=== PATIENT | female | born 2000 | race Two or more races ===

== ENCOUNTER 2020-04-21 17:21 | Emergency (ER) | payer SELFPAY ==
--- NOTE | 2020-04-21 17:39 | ER Document Report ---
ED Medical Screen (RME) - General Chief Complaint: Vaginal Bleeding Stated Complaint: VAGINAL BLEEDING Time Seen by Provider: 04/21/20 17:32 Mode of Arrival: Wheelchair Information source: Patient Notes: Patient reports being about 4 to 5 weeks . Patient taking a positive home test. Patient reports vaginal bleeding and pelvic cramping today. Patient does report some dysuria and low back pain as well. I have greeted and performed a rapid initial assessment of this patient. A comprehensive ED assessment and evaluation of the patient, analysis of test results and completion of the medical decision making process will be conducted by additional ED providers. Physical Exam - Vital signs Vitals: Temp Pulse Resp BP Pulse Ox 98.4 F 81 18 131/78 H 100 04/21/20 17:33 04/21/20 17:33 04/21/20 17:33 04/21/20 17:33 04/21/20 17:33 - Abdominal Tenderness: Tender - Lower pelvic tenderness Course - Vital Signs Vital signs: Temp Pulse Resp BP Pulse Ox 98.4 F 81 18 131/78 H 100 04/21/20 17:33 04/21/20 17:33 04/21/20 17:33 04/21/20 17:33 04/21/20 17:33
[2020-04-21 18:15] LABS: ABSOLUTE LYMPHOCYTES (AUTO) 1.9 10^3/uL (0.5-4.7); ABSOLUTE MONOCYTES (AUTO) 0.7 10^3/uL (0.1-1.4); ABSOLUTE NEUT (AUTO) 7.3 10^3/uL (1.7-8.2); BASOPHILS % (AUTO) 0.1 % (0-2); EOSINOPHILS % (AUTO) 0.4 % (0-6); HEMATOCRIT 37.4 % (36.0-47.0); HEMOGLOBIN 13.3 g/dL (12.0-15.5); LYMPHOCYTES % (AUTO) 18.8 % (13-45); MEAN CORPUSCULAR HEMOGLOBIN 33.2 pg (27.0-33.4); MEAN CORPUSCULAR HGB CONC 35.6 g/dL (32.0-36.0); MEAN CORPUSCULAR VOLUME 93 fl (80-97); MONOCYTES % (AUTO) 7.3 % (3-13); PLATELET COUNT 269 10^3/uL (150-450); RED BLOOD COUNT 4.01 10^6/uL (3.72-5.28); RED CELL DISTRIBUTION WIDTH 12.1 % (11.5-14.0); SEGMENTED NEUTROPHILS % (AUTO) 73.4 % (42-78); TOTAL CELLS COUNTED % (AUTO) 100 %; WHITE BLOOD COUNT 9.9 10^3/uL (4.0-10.5)
[2020-04-21 18:38] LABS: APPEARANCE,URINE CLEAR; BILIRUBIN,URINE NEGATIVE (NEGATIVE); COLOR,URINE STRAW; GLUCOSE, URINE NEGATIVE (NEGATIVE); KETONES,URINE 80 mg/dL (NEGATIVE); LEUKOCYTE ESTERASE,URINE NEGATIVE (NEGATIVE); NITRITE,URINE NEGATIVE (NEGATIVE); PROTEIN,URINE NEGATIVE (NEGATIVE); URINE SPECIFIC GRAVITY 1.006; UROBILINOGEN,URINE NEGATIVE mg/dL (<2.0)
--- NOTE | 2020-04-21 18:40 | RADIOLOGY REPORT (SQ) ---
EXAM DESCRIPTION: U/S OB TRANSVAGINAL W/O DOP IMAGES COMPLETED DATE/TIME: 04/21/2020 6:30 pm REASON FOR STUDY: vag bleeding, pelvic cramping COMPARISON: None. TECHNIQUE: Transvaginal static and realtime grayscale images acquired of the pelvis. Additional kenton cted spectral and color Doppler images recorded. All images stored on PACs. bHCG: Pending. CLINICAL DATES: LMP 02/23/2020 8 weeks 2 days LIMITATIONS: None. FINDINGS: FETUS: Single Living intrauterine . ULTRASOUND EGA: 5 weeks 5 days ULTRASOUND MAY: 12/17/2020 EFW: Not applicable less than 20 weeks. CRL: 0.21 cm FHR: 95 beats per minute. SURVEY: Too early to assess. AMNIOTIC FLUID: Adequate amount. PLACENTA: Not yet developed due to early gestation. SUBCHORIONIC BLEED: Yes SIZE OF BLEED: 12 x 9 x 2 mm. UTERUS: No masses. No anomalies. CERVICAL LENGTH: 1.8 cm. Closed. RIGHT ADNEXA: Normal ovary measures 2.1 x 2.4 x 2.7 cm. No adnexal free fluid. No adnexal masses. LEFT ADNEXA: Normal ovary measures 3.6 x 2.5 x 2 cm. 2.2 cm corpus luteum. No adnexal free fluid. No adnexal masses. FREE FLUID: None. OTHER: No other significant finding. IMPRESSION: LIVING INTRAUTERINE . EGA 5 weeks 5 days. Trimester of : First trimester - 0 to 13 weeks. TECHNICAL DOCUMENTATION: JOB ID: [id number] 2010 [employer]- All Rights Reserved rev Reading location - IP/workstation name: [email or web address]
--- NOTE | 2020-04-21 20:09 | ER Document Report ---
ED General - General Chief Complaint: Vaginal Bleeding Stated Complaint: VAGINAL BLEEDING Time Seen by Provider: 04/21/20 17:32 Primary Care Provider: JOHNNIE CARR MD [ACTIVE STAFF] - Follow up as needed Mode of Arrival: Wheelchair - HPI Notes: 19-year-old female here for vaginal bleeding and pelvic cramping. Patient states that yesterday she took a test and it was positive. She also had some vaginal bleeding. She described as a dark red. States she has been wearing "not that many" pads. She denies vaginal discharge. She denies concern for STD. She states her LMP was February 22, making her approximately 4 to 5 weeks gestation. She is having some nausea. No vomiting or diarrhea. She has had no previous pelvic exams before. - Related Data Allergies/Adverse Reactions: No Known Allergies Allergy (Unverified 04/21/20 17:39) Past Medical History - General Information source: Patient - Social History Smoking Status: Never Smoker Chew tobacco use (# tins/day): No Frequency of alcohol use: None Drug Abuse: None Family History: Reviewed & Not Pertinent Patient has homicidal ideation: No Review of Systems - Review of Systems Constitutional: denies: Fever EENT: No symptoms reported Cardiovascular: No symptoms reported Respiratory: No symptoms reported Gastrointestinal: Nausea Genitourinary: Dysuria Female Genitourinary: Musculoskeletal: No symptoms reported Skin: No symptoms reported Neurological/Psychological: No symptoms reported Physical Exam - Vital signs Vitals: Temp Pulse Resp BP Pulse Ox 98.4 F 81 18 131/78 H 100 04/21/20 17:33 04/21/20 17:33 04/21/20 17:33 04/21/20 17:33 04/21/20 17:33 - General General appearance: Appears well, Alert In distress: None - HEENT Head: Normocephalic Extraocular movements intact: Yes Pupils: PERRL - Respiratory Breath sounds: Normal - Cardiovascular Rhythm: Regular Heart sounds: Normal auscultation - Abdominal Distension: No distension Tenderness: Nontender - Genitourinary Notes: Pelvic exam performed with optical engineering technician compensation specialist. Normal appearing external genitalia, no lesions. On speculum exam there is a brown cervical mucus, cervix closed. No hemorrhage. No cervical motion tenderness. No adnexal tenderness. - Extremities General upper extremity: Normal ROM General lower extremity: Normal ROM - Neurological Neuro grossly intact: Yes Orientation: AAOx4 - Psychological Associated symptoms: Normal affect - Skin Skin Temperature: Warm Course - Re-evaluation Re-evalutation: 19-year-old female estimated 4-5 weeks gestation based on LMP here for pelvic cramping, vaginal bleeding with a home test that was positive. On exam she is well-appearing, vitals are stable, abdomen/pelvis has no external tenderness. Through the triage process patient had labs done which was unre markable, she is Rh+. She had an ultrasound done which shows a live IUP estimated 5 weeks gestation, ultrasound read as cervix closed. A pelvic exam was performed which did show a closed cervix as well, no tenderness, she had a brown cervical discharge. I discussed with her potentially this represents an implantation bleed. There is currently no active hemorrhage. Given that the cervix is closed on exam and ultrasound, have a lower suspicion for spontaneous or threatened at this time. Her urine does not suggest UTI. 04/21/20 21:43 Pelvic swabs with 4+ bacteria and epithelial cells, will consider this signs of BV given the discharge that she had. Discussed with patient treatment options Flagyl oral versus intravaginal, she would like oral. I discussed with her need to start vitamins, can only use Tylenol for pain, need to follow-up with CLERK ANALYST or health department. She verbalized understanding peer return precautions given, he stable time of discharge. - Vital Signs Vital signs: Temp Pulse Resp BP Pulse Ox 98.4 F 87 18 126/70 H 100 04/21/20 21:28 04/21/20 21:28 04/21/20 21:28 04/21/20 21:28 04/21/20 21:28 - Laboratory Result Diagrams: 04/21/20 17:53 Laboratory results interpreted by me: 04/21/20 04/21/20 17:53 17:53 Beta HCG, Quant 34110.00 H Urine Ketones 80 H Urine Blood SMALL H - Diagnostic Test Radiology reviewed: Image reviewed, Reports reviewed Discharge - Discharge Clinical Impression: First trimester , Bacterial vaginosis Condition: Stable Disposition: HOME, SELF-CARE Additional Instructions: Please establish care with CLERK ANALYST. I have provided contact information for the CLERK ANALYST that was brazer induction today, you may establish with a practice of your choice, you may look into using the health department as well. Please start vitamins. Start course of Flagyl for bacterial vaginosis. You may take Tylenol for any pain, can no longer use NSAIDs, which is ibuprofen/Motrin ect. Return to the emergency department for any concerning worsening symptoms. Prescriptions: Metronidazole [Flagyl 500 mg Tablet] 500 mg PO BID 7 Days #14 tablet Vitamin [-U Multiple Vitamin Capsule] 1 cap PO DAILY #30 capsule Referrals: JOHNNIE CARR MD [ACTIVE STAFF] - Follow up as needed
[2020-04-21 20:19] LABS: CHLAM PCR NOT DETECTED (NOT DETECT)
[2020-04-21 21:17] LABS: BACTERIA (WET MOUNT) 4+ BACTERIA SEEN; EPITHELIALS (WET MOUNT) 3+ EPITHELIALS SEEN; RBCS (WET MOUNT) NO RBCS SEEN; T.VAGINALIS (WET MOUNT) NO TRICHOMONAS SEEN; WBCS (WET MOUNT) 1+ WBCS SEEN; YEAST (WET MOUNT) NO YEAST SEEN
[2020-04-21 21:29] VITALS: BP 126/70
[2020-04-22 00:33] LABS: CHLAM PCR NOT DETECTED (NOT DETECT)
== END 2020-04-21 21:52 | disposition home or self-care (01) ==
LOC: ER 17:21
DX: O23.591 Infection of other part of genital tract in pregnancy, first trimester (principal); B96.89 Other specified bacterial agents as the cause of diseases classified elsewhere; O20.8 Other hemorrhage in early pregnancy; O26.891 Other specified pregnancy related conditions, first trimester; R10.2 Pelvic and perineal pain; R11.0 Nausea; R30.0 Dysuria; Z3A.01 Less than 8 weeks gestation of pregnancy
CPT/HCPCS: 36415; 76817; 81001; 84702; 85025; 86900; 86901; 87210; 87491; 87591; 99284

== ENCOUNTER 2020-04-24 17:37 | Emergency (ER) | payer SELFPAY ==
--- NOTE | 2020-04-24 18:01 | ER Document Report ---
ED Medical Screen (RME) - General Chief Complaint: Vag Bleeding, +preg <12wks Stated Complaint: VAGINAL BLEEDING Time Seen by Provider: 04/24/20 17:54 Mode of Arrival: Wheelchair Information source: Patient Notes: HPI; 19-year-old female who states she is approximately 5 weeks presents to be emergency room with a sudden onset of heavy bleeding and passing clots that started approximately 1 hour prior to arrival. Patient states she was seen here on when she was first diagnosed with her and was told the bleeding was implantation bleeding. She is a 1. Complaining of cramping with the bleeding. PE: Alert and oriented x3. Moderate distress noted. Lungs: Clear to auscultation without rales, rhonchi, wheezes. Heart: Regular rate rhythm without murmurs, rubs, gallops. I have greeted and performed a rapid initial assessment of this patient. A comprehensive ED assessment and evaluation of the patient, analysis of test results and completion of the medical decision making process will be conducted by additional ED providers. I have specifically instructed the patient or family members with the patient to immediately return to any nursing staff should anything change in the patient's condition or with their chief complaint. TRAVEL OUTSIDE OF THE [place] IN LAST 30 DAYS: No - Related Data Allergies/Adverse Reactions: No Known Allergies Allergy (Unverified 04/21/20 17:39) Physical Exam - Vital signs Vitals: Temp Pulse Resp BP Pulse Ox 98.6 F 84 16 127/71 H 99 04/24/20 17:53 04/24/20 17:53 04/24/20 17:53 04/24/20 17:53 04/24/20 17:53 Course - Vital Signs Vital signs: Temp Pulse Resp BP Pulse Ox 98.6 F 84 16 127/71 H 99 04/24/20 17:53 04/24/20 17:53 04/24/20 17:53 04/24/20 17:53 04/24/20 17:53
[2020-04-24 18:23] LABS: ABSOLUTE LYMPHOCYTES (AUTO) 1.9 10^3/uL (0.5-4.7); ABSOLUTE MONOCYTES (AUTO) 0.9 10^3/uL (0.1-1.4); BASOPHILS % (AUTO) 0.3 % (0-2); HEMOGLOBIN 13.5 g/dL (12.0-15.5); TOTAL CELLS COUNTED % (AUTO) 100 %
[2020-04-24 18:30] LABS: ABSOLUTE NEUT (AUTO) 8.7 10^3/uL (1.7-8.2); EOSINOPHILS % (AUTO) 0.3 % (0-6); LYMPHOCYTES % (AUTO) 16.4 % (13-45); MEAN CORPUSCULAR HEMOGLOBIN 33.1 pg (27.0-33.4); MEAN CORPUSCULAR HGB CONC 35.6 g/dL (32.0-36.0); MEAN CORPUSCULAR VOLUME 93 fl (80-97); PLATELET COUNT 277 10^3/uL (150-450); RED BLOOD COUNT 4.08 10^6/uL (3.72-5.28); WHITE BLOOD COUNT 11.6 10^3/uL (4.0-10.5)
[2020-04-24 18:42] LABS: ALBUMIN 4.2 g/dL (3.5-5.0); ALKALINE PHOSPHATASE 58 U/L (38-126); ANION GAP 10 (5-19); ASPARTATE AMINO TRANSFERASE 20 U/L (14-36); BILIRUBIN,DIRECT 0.2 mg/dL (0.0-0.4); BILIRUBIN,TOTAL 0.5 mg/dL (0.2-1.3); BLOOD UREA NITROGEN 6 mg/dL (7-20); CALCIUM 8.8 mg/dL (8.4-10.2); CARBON DIOXIDE 21 mmol/L (22-30); CHLORIDE 107 mmol/L (98-107); GLUCOSE 90 mg/dL (75-110); POTASSIUM 3.6 mmol/L (3.6-5.0); TOTAL PROTEIN 6.9 g/dL (6.3-8.2)
--- NOTE | 2020-04-24 19:01 | RADIOLOGY REPORT (SQ) ---
EXAM DESCRIPTION: U/S OB TRANSVAG W/DOPPLER IMAGES COMPLETED DATE/TIME: 04/24/2020 6:42 pm REASON FOR STUDY: bleeding COMPARISON: None. TECHNIQUE: Transvaginal static and realtime grayscale images acquired of the pelvis. Additional kenton cted spectral and color Doppler images recorded. All images stored on PACs. bHC,125 on 04/21/2020. Today's value is pending. CLINICAL DATES: 8 week 5 day LIMITATIONS: None. FINDINGS: FETUS: Single Living intrauterine . ULTRASOUND EGA: 6 week 3 day ULTRASOUND MAY: 12/15/2020 EFW: Not applicable less than 20 weeks. CRL: 0.6 cm YOLK SAC: Present, slightly irregular-shaped. FHR: 111 beats per minute. SURVEY: Too early to assess. AMNIOTIC FLUID: Adequate amount. PLACENTA: Not yet developed due to early gestation. SUBCHORIONIC BLEED: No. SIZE OF BLEED: Not applicable. UTERUS: No masses. No anomalies. CERVICAL LENGTH: 2.1 cm. Closed. RIGHT ADNEXA: Normal ovary with normal vascular flow. No adnexal free fluid. No adnexal masses. LEFT ADNEXA: Normal ovary with normal vascular flow. No adnexal free fluid. No adnexal masses. FREE FLUID: None. OTHER: No other significant finding. IMPRESSION: Early living IUP, slight further growth compared to study from 3 days ago. On today's s tudy, it measures 6 weeks 3 days. This is less than expected based on correlation with clinical dati ng (8 week 5 day). There is also a slightly irregular yolk sac. Close clinical followup and imaging surveillance recommended. Trimester of : First trimester - 0 to 13 weeks. TECHNICAL DOCUMENTATION: JOB ID: [id number] 2010 [employer]- All Rights Reserved rev-12/06 Reading location - IP/workstation name: [email or web address]
[2020-04-24] MEDS ORDERED: ONDANSETRON HCL INJ/PF 4 MG/2 ML SDV IV ONE (19:24)
--- NOTE | 2020-04-24 19:28 | ER Document Report ---
ED General - General Chief Complaint: abnormal vaginal bleeding Stated Complaint: VAGINAL BLEEDING Time Seen by Provider: 04/24/20 17:54 Mode of Arrival: Wheelchair TRAVEL OUTSIDE OF THE [place] IN LAST 30 DAYS: No - HPI Notes: This is a 19-year-old female, G1, P0, last menstrual period on February 22, who presents to the emergency department for evaluation of vaginal bleeding. She was actually seen here on April 21 for some spotting. She was diagnosed with bacterial vaginosis at that time, started on medication. The patient states that it at 4:00 today she started having increased cramping and heavier bleeding. She relates that it is slightly heavier than a menstrual period. She has some cramping that she rates as a 3 out of 5. No fevers or chills. She has had some nausea but no emesis. No dysuria, urine Fausto frequency. - Related Data Allergies/Adverse Reactions: No Known Allergies Allergy (Unverified 04/21/20 17:39) Home Medications: flagyl, vitamins Past Medical History - General Information source: Patient - Social History Smoking Status: Never Smoker Frequency of alcohol use: None Drug Abuse: None Family History: Reviewed & Not Pertinent - Medical History Medical History: Negative Past Surgical History: Reports: None Review of Systems - Review of Systems Constitutional: No symptoms reported EENT: No symptoms reported Cardiovascular: No symptoms reported Respiratory: No symptoms reported Gastrointestinal: See HPI Genitourinary: No symptoms reported Female Genitourinary: See HPI Musculoskeletal: No symptoms reported Skin: No symptoms reported Neurological/Psychological: No symptoms reported Physical Exam - Vital signs Vitals: Temp Pulse Resp BP Pulse Ox 98.6 F 84 16 127/71 H 99 04/24/20 17:53 04/24/20 17:53 04/24/20 17:53 04/24/20 17:53 04/24/20 17:53 - Notes Notes: Vital signs reviewed, please refer to chart. Head is normocephalic, atraumatic. Pupils equal round, reactive to light. Neck is supple without meningismus. Heart is regular rate and rhythm. Lungs are clear to auscultation bilaterally. Abdomen is soft, nontender, normoactive bowel sounds throughout. Extremities without cyanosis, clubbing. Posterior calves are nontender. Peripheral pulses are equal. Skin is warm and dry. Patient is awake, alert, neurological exam is nonfocal. Course - Re-evaluation Re-evalutation: 04/24/20 19:26 Patient presents to the emergency department for evaluation. Laboratory investigations were ordered as through triage. She had blood bank testing performed on her prior visit, she was found to be a positive. Her laboratory investigations are still pending, particularly her beta-hCG. However her ultrasound reveals a heart rate of 111, irregular sac, and lack of growth, all consistent with likely ongoing spontaneous AB. Patient was notified of this finding. I did order Zofran for her nausea. She is currently stable, we will continue to monitor. 04/24/20 19:38 Patient's quantitative beta hCG, has in fact gone up. I explained this to the patient as well as her mother. I explained that this does increase the likelihood of there being a chance of carrying this , but I still expressed my concern that it was a likely spontaneous miscarriage. I encouraged her to continue with pelvic rest and regular care. I will give her a lab slip to have her quantitative beta-hCG repeated in 48 hours, results on to Dr. Valdez, on-call GENERAL REPAIR MECHANIC. Otherwise she is told to take Tylenol at home as needed for pain. Return to the ED with worsening or new concerning symptoms of any sort. - Vital Signs Vital signs: Temp Pulse Resp BP Pulse Ox 98.6 F 84 16 127/71 H 99 04/24/20 17:53 04/24/20 17:53 04/24/20 17:53 04/24/20 17:53 04/24/20 17:53 - Laboratory Result Diagrams: 04/24/20 18:13 04/24/20 18:13 Laboratory results interpreted by me: 04/24/20 04/24/20 18:13 18:13 WBC 11.6 H Absolute Neuts (auto) 8.7 H Carbon Dioxide 21 L BUN 6 L Creatinine 0.48 L Beta HCG, Quant 34647.00 H - Diagnostic Test Radiology reviewed: Reports reviewed Radiology results interpreted by me: 04/24/20 19:27 Transvaginal US 04/24/20 18:00 IMPRESSION: Early living IUP, slight further growth compared to study from 3 days ago. On today's study, it measures 6 weeks 3 days. This is less than expected based on correlation with clinical dating (8 week 5 day). There is also a slightly irregular yolk sac. Close clinical followup and imaging surveillance recommended. Trimester of : First trimester - 0 to 13 weeks. Discharge - Discharge Clinical Impression: Threatened miscarriage in early Condition: Stable Disposition: HOME, SELF-CARE Instructions: Threatened Miscarriage ([facility]), Bleeding During Early ([facility]) Additional Instructions: Pelvic rest as instructed. Have your labs redrawn in 48 hours, results will go to our on-call GENERAL REPAIR MECHANIC. If you develop fever, and increasing pain, bleeding consistently heavier than 1 pad an hour, or any other new or concerning symptoms, please return immediately to the emergency department for evaluation. Forms: Follow-Up Laboratory Testing
[2020-04-24 20:21] VITALS: BP 111/62
== END 2020-04-24 20:21 | disposition home or self-care (01) ==
LOC: ER 17:37
DX: O20.0 Threatened abortion (principal); Z3A.08 8 weeks gestation of pregnancy
CPT/HCPCS: 99285; 96374; 36415; 84702; 85025; 80053; 76817; 93976; J2405

== ENCOUNTER → 2020-04-26 | Outpatient (CLI) | payer SELFPAY | LOC: OD 15:17 | PROVIDERS: ATTEND Obstetrics & Gynecology | DX: O20.0 Threatened abortion (principal); Z3A.00 Weeks of gestation of pregnancy not specified | CPT/HCPCS: 36415; 84702 ==

== ENCOUNTER 2020-04-28 14:29 | Emergency (ER) | payer SELFPAY ==
[2020-04-28 14:35] VITALS: BP 115/72
--- NOTE | 2020-04-28 14:36 | ER Document Report ---
ED Medical Screen (RME) - General Chief Complaint: Vag Bleeding, +preg <12wks Stated Complaint: VAGINAL BLEEDING Time Seen by Provider: 04/28/20 14:32 Primary Care Provider: JOE OBRIEN MD [Primary Care Provider] - Follow up as needed Information source: Patient Notes: Patient presents complaining of vaginal bleeding since yesterday. Patient is currently 5 weeks G1, P0. Patient reports nausea without any vomiting or diarrhea. Patient denies any urinary symptoms. Review of previous ER records demonstrates patient's blood type is A+. I have greeted and performed a rapid initial assessment of this patient. A comprehensive ED assessment and evaluation of the patient, analysis of test results and completion of the medical decision making process will be conducted by additional ED providers. TRAVEL OUTSIDE OF THE [place] IN LAST 30 DAYS: No - Related Data Allergies/Adverse Reactions: No Known Allergies Allergy (Unverified 04/21/20 17:39) Physical Exam - Abdominal Tenderness: Tender - Lower pelvic tenderness Doctor's Discharge - Discharge Referrals: JOE OBRIEN MD [Primary Care Provider] - Follow up as needed
[2020-04-28 15:18] LABS: ABSOLUTE LYMPHOCYTES (AUTO) 1.4 10^3/uL (0.5-4.7); ABSOLUTE MONOCYTES (AUTO) 0.4 10^3/uL (0.1-1.4); ABSOLUTE NEUT (AUTO) 7.4 10^3/uL (1.7-8.2); BASOPHILS % (AUTO) 0.2 % (0-2); EOSINOPHILS % (AUTO) 0.3 % (0-6); HEMATOCRIT 39.2 % (36.0-47.0); LYMPHOCYTES % (AUTO) 14.9 % (13-45); MEAN CORPUSCULAR HEMOGLOBIN 33.5 pg (27.0-33.4); MEAN CORPUSCULAR HGB CONC 35.6 g/dL (32.0-36.0); MEAN CORPUSCULAR VOLUME 94 fl (80-97); MONOCYTES % (AUTO) 4.7 % (3-13); PLATELET COUNT 287 10^3/uL (150-450); RED BLOOD COUNT 4.17 10^6/uL (3.72-5.28); RED CELL DISTRIBUTION WIDTH 12.3 % (11.5-14.0); SEGMENTED NEUTROPHILS % (AUTO) 79.9 % (42-78); TOTAL CELLS COUNTED % (AUTO) 100 %; WHITE BLOOD COUNT 9.3 10^3/uL (4.0-10.5)
[2020-04-28 16:00] LABS: APPEARANCE,URINE TURBID; BILIRUBIN,URINE NEGATIVE (NEGATIVE); COLOR,URINE YELLOW; GLUCOSE, URINE NEGATIVE (NEGATIVE); KETONES,URINE NEGATIVE (NEGATIVE); LEUKOCYTE ESTERASE,URINE MODERATE (NEGATIVE); NITRITE,URINE NEGATIVE (NEGATIVE); PROTEIN,URINE 100 mg/dL (NEGATIVE); URINE SPECIFIC GRAVITY 1.027; UROBILINOGEN,URINE NEGATIVE mg/dL (<2.0)
--- NOTE | 2020-04-28 16:01 | RADIOLOGY REPORT (SQ) ---
EXAM DESCRIPTION: U/S OB TRANSVAGINAL W/O DOP IMAGES COMPLETED DATE/TIME: 04/28/2020 3:48 pm REASON FOR STUDY: vag bleeding, pelvic pain COMPARISON: 04/21/2020 TECHNIQUE: Transvaginal static and realtime grayscale images acquired of the pelvis. Additional kenton cted spectral and color Doppler images recorded. All images stored on PACs. bHCG: Pending. CLINICAL DATES: 9 weeks LIMITATIONS: None. FINDINGS: FETUS: Single Living intrauterine . ULTRASOUND EGA: 6 weeks 6 days ULTRASOUND MAY: 12/16/2020 EFW: Not applicable less than 20 weeks. CRL: 9 mm FHR: 130 beats per minute. SURVEY: Too early to assess. AMNIOTIC FLUID: Adequate amount. PLACENTA: Not yet developed due to early gestation. SUBCHORIONIC BLEED: Yes SIZE OF BLEED: 1.4 x 0.4 x 0.4 cm. UTERUS: No masses. No anomalies. CERVICAL LENGTH: 2.1 cm Closed. Nabothian cysts noted. RIGHT ADNEXA: Normal ovary with normal vascular flow. No adnexal free fluid. No adnexal masses. LEFT ADNEXA: Normal ovary with normal vascular flow. No adnexal free fluid. No adnexal masses. FREE FLUID: Small amount of cul-de-sac free fluid. OTHER: No other significant finding. IMPRESSION: LIVING INTRAUTERINE . EGA 6 weeks 6 days Similar small subchorionic hemorrhage compared with the prior study. Trimester of : First trimester - 0 to 13 weeks. TECHNICAL DOCUMENTATION: JOB ID: [id number] 2010 [employer]- All Rights Reserved Reading location - IP/workstation name: [email or web address]
--- NOTE | 2020-04-28 18:45 | ER Document Report ---
ED General - General Chief Complaint: Vag Bleeding, +preg <12wks Stated Complaint: VAGINAL BLEEDING Time Seen by Provider: 04/28/20 14:32 Primary Care Provider: RAHEL WEAVER MD [ACTIVE PROVISIONAL STAFF] - Follow up tomorrow (Please call first thing tomorrow for an appointment) JOE OBRIEN MD [ACTIVE STAFF] - Follow up as needed TRAVEL OUTSIDE OF THE [place] IN LAST 30 DAYS: No - HPI Patient complains to provider of: Vaginal bleeding Onset: Just prior to arrival Onset/Duration: Intermittent Quality of pain: Cramping Associated symptoms: None Exacerbated by: Denies Relieved by: Denies Notes: Patient is a 19-year-old female who is a G1, P0 at approximately 6 weeks who presents with vaginal bleeding. Patient states she has cramping and vaginal bleeding that started today. She describes it as bright red clots. Patient states she has had this off and on for the past several days. She was seen in the ER for this on 101 and 104. She had an ultrasound both days. There was noted to be an irregular yolk sac on 04/24. She was diagnosed with a threatened miscarriage. She states she also did a hCG testing outpatient and was told that her hCG levels are low. Patient has not followed up with OB. She denies any urinary symptoms. She denies any vaginal discharge. Patient was te sted for STDs both on 04/21 and 04/24. Gonorrhea and Chlamydia were negative but she was diagnosed with bacterial vaginosis. She is currently taking Flagyl. - Related Data Allergies/Adverse Reactions: No Known Allergies Allergy (Verified 04/28/20 14:48) Past Medical History - General Information source: Patient - Social History Smoking Status: Never Smoker Chew tobacco use (# tins/day): No Frequency of alcohol use: None Drug Abuse: None Family History: Reviewed & Not Pertinent Patient has homicidal ideation: No Review of Systems - Review of Systems Notes: CONSTITUTIONAL: No fever, fatigue or weight loss. SKIN: No rash. HENT: No congestion, ear pain, or sore throat. EYES: No recent vision problems or eye pain. ENDOCRINE: No thyroid problems. No polyuria or polydipsia. CARDIOVASCULAR: No chest pain or edema. RESPIRATORY: No cough, shortness of breath, congestion, or wheezing. GASTROINTESTINAL: No abdominal pain, nausea, vomiting, bloody stools or diarrhea. Positive for cramping. GENITOURINARY: No dysuria. Positive for vaginal bleeding. MUSCULOSKELETAL: No joint pain or swelling. LYMPHATIC: No swollen glands. NEUROLOGIC: No seizures. No headache, focal weakness or sensory changes. HEMATOLOGIC: No unusual bruising or bleeding. PSYCHIATRIC: No depression or anxiety. Physical Exam - Vital signs Vitals: Temp Pulse Resp BP Pulse Ox 98.7 F 80 18 115/72 100 04/28/20 14:34 04/28/20 14:34 04/28/20 14:34 04/28/20 14:34 04/28/20 14:34 - Notes Notes: VITAL SIGNS: Within normal limits. GENERAL: No acute distress, non-toxic appearance. HEAD: Normal with no signs of head trauma. EYES: EOMI, conjunctiva normal, no discharge. EARS: Hearing grossly intact. NOSE: Normal. NECK: Normal range of motion, no tenderness, supple, no lymphadenopathy, No adenopathy, no JVD. CHEST: Clear breath sounds bilaterally. No wheezes, rales, or rhonchi. CARDIAC: Regular rate and rhythm. S1 and S2, without murmurs, gallops, or rubs. VASCULAR: No Edema. Peripheral pulses normal and equal in all extremities. ABDOMEN: Normal and soft with no tenderness, no masses or pulsatile masses. GENITOURINARY: Normal, No tenderness LYMPATHTIC: No lymphadenopathy noted. MUSCULOSKELETAL: Good range of motion of all major joints. Extremities without clubbing, cyanosis or edema. NEUROLOGICAL: Alert and oriented x 3. No focal sensory or strength deficits. Speech normal. Follows commands appropriately. PSYCHIATRIC: Normal Affect, judgement and mood. SKIN: Normal appearance with no rashes or lesions. Course - Re-evaluation Re-evalutation: 04/29/20 01:45 Patient has a steadily rising hCG compared to previous. Her ultrasound today shows a live intrauterine at 6 weeks and 6 days. She does have a small subchorionic hemorrhage which is similar to previous exam. Patient's hemoglobin is within normal limits. She does have a significant amount of squamous cells in her urine which is a contaminant. She denies any dysuria. I did offer to retest her urine but she states she does not have to go to the bathroom right now. She states she would prefer not to be placed on a different antibiotic as she is already on Flagyl. I informed her that we can send the urine for culture and she will be called with the results. I also offered a pelvic exam but patient declined because she has already had one here previously within the week. I did inform her that she needs to have pelvic rest. She is p ossibly having a threatened miscarriage due to the vaginal bleeding. I also told her she needs to call the OB first thing in the morning. Patient is very agreeable to this. She will return for any worsening symptoms. Patient does not require RhoGam. 04/29/20 01:48 - Vital Signs Vital signs: Temp Pulse Resp BP Pulse Ox 98.5 F 86 14 115/72 100 04/28/20 19:03 04/28/20 19:03 04/28/20 19:03 04/28/20 14:34 04/28/20 19:03 - Laboratory Result Diagrams: 04/28/20 14:58 Laboratory results interpreted by me: 04/28/20 04/28/20 04/28/20 14:58 14:58 15:30 MCH 33.5 H Seg Neutrophils % 79.9 H Beta HCG, Quant 84810.00 H Urine Protein 100 H Urine Blood LARGE H Ur Leukocyte Esterase MODERATE H Urine Ascorbic Acid 20 H - Diagnostic Test Radiology reviewed: Reports reviewed Discharge - Discharge Clinical Impression: Vaginal bleeding, Threatened miscarriage in early , First trimester Subchorionic hematoma in first trimester Qualifiers: Fetus number: single or unspecified fetus Qualified Code(s): O41.8X10 - Other specified disorders of amniotic fluid and membranes, first trimester, not applicable or unspecified Disposition: HOME, SELF-CARE Instructions: Bleeding During Early ([facility]), Threatened Miscarriage ([facility]) Additional Instructions: Please call the OB first thing tomorrow morning. You will need to follow-up in the office. Make sure you are doing pelvic rest. Please return to the ER for any worsening pain, bleeding, any other concerning symptoms. Referrals: JOE OBRIEN MD [ACTIVE STAFF] - Follow up as needed RAHEL WEAVER MD [ACTIVE PROVISIONAL STAFF] - Follow up tomorrow (Please call first thing tomorrow for an appointment)
== END 2020-04-28 19:00 | disposition home or self-care (01) ==
LOC: ER 14:29
DX: O20.0 Threatened abortion (principal); O23.591 Infection of other part of genital tract in pregnancy, first trimester; B96.89 Other specified bacterial agents as the cause of diseases classified elsewhere; O26.891 Other specified pregnancy related conditions, first trimester; R25.2 Cramp and spasm; Z3A.01 Less than 8 weeks gestation of pregnancy
CPT/HCPCS: 36415; 76817; 81001; 84702; 85025; 87086; 99284

== ENCOUNTER → 2020-05-12 | Outpatient (CLI) | payer SELFPAY ==
--- NOTE | 2020-05-12 15:30 | RADIOLOGY REPORT (SQ) ---
EXAM DESCRIPTION: U/S [id number] TRNABD 1GES W/ODOP IMAGES COMPLETED DATE/TIME: 05/12/2020 2:54 pm REASON FOR STUDY: ENCNTR FOR SUPRVSN OF NORMAL FIRST PREG, FIRST TRIMESTER Z34.01 ENCNTR FOR SUPRVS N OF NORMAL FIRST PREG, FIRST TRIMES COMPARISON: 04/28/2020 TECHNIQUE: Transabdominal static and realtime grayscale images acquired of the pelvis. Additional se lected spectral and color Doppler images recorded. All images stored on PACs. bHCG: Not available. CLINICAL DATES: LMP 03/14/2020 8 weeks 3 days LIMITATIONS: None. FINDINGS: FETUS: Single Living intrauterine . ULTRASOUND EGA: 8 weeks 5 days ULTRASOUND MAY: 12/17/2020 EFW: Not applicable less than 20 weeks. CRL: 2.1 cm FHR: 170 beats per minute. SURVEY: Too early to assess. AMNIOTIC FLUID: Adequate amount. PLACENTA: Not yet developed due to early gestation. SUBCHORIONIC BLEED: No SIZE OF BLEED: Not applicable. UTERUS: No masses. No anomalies. CERVICAL LENGTH: 2 cm. Closed. RIGHT ADNEXA: Ovary not seen. No adnexal free fluid. No adnexal masses. LEFT ADNEXA: Normal ovary with normal vascular flow. 4 x 2 x 2 cm. No adnexal free fluid. No adnexal masses. FREE FLUID: None. OTHER: No other significant finding. IMPRESSION: LIVING INTRAUTERINE . EGA 8 weeks 5 days. Trimester of : First trimester - 0 to 13 weeks. TECHNICAL DOCUMENTATION: JOB ID: [id number] 2010 [employer]- All Rights Reserved Reading location - IP/workstation name: [email or web address]
== END ==
LOC: RAD 14:34
PROVIDERS: ATTEND Nurse Practitioner Family
DX: Z34.01 Encounter for supervision of normal first pregnancy, first trimester (principal); Z3A.08 8 weeks gestation of pregnancy
CPT/HCPCS: 76801

== ENCOUNTER → 2020-06-23 | Outpatient (CLI) | payer MEDICAID ==
--- NOTE | 2020-06-23 14:42 | RADIOLOGY REPORT (SQ) ---
EXAM DESCRIPTION: U/S OB 14+ TRNABD 1GES W/O DOP IMAGES COMPLETED DATE/TIME: 06/23/2020 1:43 pm REASON FOR STUDY: Z34.02 ENCOUNTER FOR SUPRVSN OF NORMAL , SECOND TRIMESTER Z34.82 ENCOUNT ER FOR SUPRVSN OF NORMAL , SECOND TRI COMPARISON: 05/12/2020 TECHNIQUE: Static and Dynamic grayscale imaging performed of gravid uterus using transabdominal appr oach. Additional selected color Doppler and spectral images recorded. All stored on PACS. LIMITATIONS: Relatively early gestational age. FINDINGS: FETUSES SEEN:1 EGA: 15 weeks 4 days Calculated using BPD,FL,HC,AC documented on images. 1 week and 1 day in excess of the clinical gestational age MAY: 12/11/2020 EFW: Not calculated. Grams PERCENTILE: Not calculated. LVP: 3.4 x 5.6 cm. PLACENTA: Posterior grade 1 PRESENTATION: Variable ANATOMY: HEART RATE: 141 beats per minute. FOUR CHAMBER HEART: Not confirmed. THREE VESSEL CORD: Not confirmed. CORD INSERTION: Visualized. KIDNEYS AND BLADDER: Visualized. Appear normal. STOMACH: Visualized. Appears normal. SPINE: Normal as visualized. BRAIN AND LATERAL VENTRICLES: Poorly seen. OTHER: No other significant finding. MATERNAL ADNEXA: Ovaries are normal. CERVICAL LENGTH: 2.3 cm. Closed. OTHER: No other significant finding. IMPRESSION: LIVING INTRAUTERINE . ESTIMATED GESTATIONAL AGE 15 weeks 4 days NO VISUALIZED ANOMALIES. Trimester of : Second trimester - 13 weeks 1 day to 27 weeks 6 days. TECHNICAL DOCUMENTATION: JOB ID: [id number] 2010 [employer]- All Rights Reserved Reading location - IP/workstation name: [email or web address]
== END ==
LOC: RAD 13:19
PROVIDERS: ATTEND Nurse Practitioner Family
DX: Z34.82 Encounter for supervision of other normal pregnancy, second trimester (principal); Z3A.15 15 weeks gestation of pregnancy
CPT/HCPCS: 76805